=== PATIENT | female | born 1975 | race Caucasian/White ===

== ENCOUNTER 2025-03-05 08:32 | Emergency (ER) | payer BC ==
[~2025-03-05] VITALS: Ht 154.9 cm; Wt 71.2 kg
[2025-03-05] MEDS ORDERED: SODIUM CHLORIDE 0.9% 1,000 ML IV ONE (08:55)
[2025-03-05] MEDS ORDERED: Ondansetron Hydrochloride 4 MG/2 ML VIAL IV ONE (08:55)
[2025-03-05 09:11] LABS: BASO # 0.0 10*3/uL (0.0-0.1); BASO % 0.3 % (0.0-1.0); EOS # 0.0 10*3/uL (0.0-0.4); EOS % 0.2 % (1.0-4.0); MEAN CELL VOLUME 91.1 fl (81.0-99.0); MEAN CORPUSCULAR HGB 30.7 pg (27.0-31.0); MEAN PLATELET VOLUME 9.8 fl (9.6-12.3); MONO # 1.4 10*3/uL (0.1-1.0); MONO % 10.3 % (3.0-9.0); NEUT # 10.0 10*3/uL (2.3-7.9); NEUT % 76.0 % (47.0-73.0); NUCLEATED RED BLOOD CELL 0.0 % (0.0-0.0); NUCLEATED RED BLOOD CELL 0.0 10*3/uL (0.0-0.0); PLATELET COUNT AUTOMATED 248 10*3/uL (130-400); RED CELL DISTRI WIDTH 13.7 % (0-14.5)
[2025-03-05 09:39] LABS: BUN 13 mg/dl (9-23); CPK 108 U/L (34-171)
[2025-03-05] MEDS ORDERED: CIPRO500 MG PO (10:10)
[2025-03-05] MEDS ORDERED: MELOXICAM15 MG PO (10:10)
[2025-03-05] MEDS ORDERED: Ondansetron4 MG PO (10:10)
== END 2025-03-05 10:43 | disposition home or self-care (01) ==
LOC: ED 08:32
PROVIDERS: Emergency Medicine
DX: M79.18 Myalgia, other site (principal); R19.7 Diarrhea, unspecified; R11.0 Nausea